=== PATIENT | female | born 1980 | race Caucasian/White ===

== ENCOUNTER 2024-08-15 09:12 | Emergency (ER) | payer OTHER ==
[~2024-08-15] VITALS: Ht 160 cm; Wt 80.0 kg
[2024-08-15 09:32] VITALS: BP 121/82; PULSE 81; RESP 16; O2SAT 99
--- NOTE | 2024-08-15 10:22 | RADIOLOGY REPORT ---
DI CHEST,SINGLE VIEW, HISTORY: cough COMPARISON: None None TECHNICAL DATA: 1 view of the chest was obtained. FINDINGS: Lines and tubes: None Cardiomediastinal silhouette: normal Pulmonary vasculature: normal Lung expansion: normal Lung airspace: normal Lung interstitium: normal Pleura: normal Pneumothorax: no Bones: Unremarkable Other: no IMPRESSION: No acute intrathoracic abnormality.
--- NOTE | 2024-08-15 11:55 | Physician Documentation ---
History of Present Illness ~ Chief Complaint: Cold, cough & congestion Stated Complaint: SICK X1 WEEK Time Seen by MD: 09:35 HPI 43-year-old female reports a chief complaint of cold cough and congestion. Patient states he has been experiencing symptoms for over a week and has not improved. Currently not a in antibiotics. Taking [id number] medications which isn't improving symptoms. Denies fevers or chills. No other complaints at this time Medication Reconciliation Allergies: Coded Allergies: No Known Allergies (Unverified , 08/15/24) Physical Exam Vital Signs: Temperature: 99.1, Source: Oral, Heart Rate: 81, Respiratory Rate: 16, BP: 121/82, Pulse Oximetry: 99, Weight: 80.000 Oxygen Flow Rate: 0 Physical Exam General: Well developed, well nourished, no distress. HEENT: Atraumatic, normal conjunctiva, moist mucous membranes. Neck: Full range of motion, supple. Respiratory: Lungs clear, no respiratory distress. Chest: No accessory muscle use, nontender. Cardiovascular: Regular rate and rhythm. Gastrointestinal: Soft, nontender, nondistended. Bowel sounds present. Extremities: Normal range of motion, nontender, normal capillary refill, no deformity. Back: No midline tenderness, no CVA tenderness. Neurologic: Oriented x4. Distal gross motor and sensory intact all four extremities. Moves all 4 extremities spontaneously. Psychiatric: Normal mood and affect. Skin: Normal color, warm and dry. No edema, no ecchymosis Progress Results/Orders Results/Orders Orders - JOSELINE GIBBS Chest,Single View (08/15/24 10:02) Covid19 Binax Poc Result Entry (08/15/24 10:09) Completed Orders - JOSELINE GIBBS Chest,Single View (08/15/24 10:02) Vital Signs 08/15/24 09:32 Temp 99.1 Pulse 81 Resp 16 B/P (MAP) 121/82 Pulse Ox 99 O2 Flow Rate 0 Laboratory Tests Test 08/15/24 10:06 SARS-CoV-2 Antigen (Rapid) Negative Medical Decision Making Additional info obtained from: old records Findings After detailed discussion and joint medical decision-making, diagnostic and imaging results were discussed with the patient. At this time patient we will be given symptomatic treatment but no antibiotics. Patient was offered a breathing treatment with a declined. Patient is advised to follow up with the primary care. ER precautions were given. Patient is stable upon discharge. All patient questions answered to satisfaction Differential Dx:Considerations: Include: Allergic rhinitis, Influenza, Otitis media, Peritonsillar abscess, Pharyngitis-Streptoccal, Pharyngitis-Viral, Pneumonia, Sinusitis Departure Disposition: HOME / SELF CARE / HOMELESS Impression: Primary Impression: Acute bronchitis Additional Impressions: Acute respiratory infection Cough Condition: Stable Discharge Instructions: Cough, Adult, Upper Respiratory Infection, Adult Referrals: NO PRIMARY CARE PROVIDER (PCP) Prescriptions D-Methorphan Hb/P-Epd HCl/Bpm (Bromfed Dm Cough Syrup) 2 Mg-30 Mg-10 Mg/5 Ml Syrup 10-May ML PO Q4HPRN PRN for cough for 2 Days, #120 ML 0 Refills Prov: JOSELINE GIBBS 08/15/24 Azithromycin (Zithromax) 250 Mg Tablet 1 TAB PO UD for 5 Days, #6 TAB 0 Refills 2 the first day followed by 1 for days 2-5 Prov: JOSELINE GIBBS 08/15/24 Prednisone* (Prednisone*) 20 Mg Tablet 1 TAB PO Q12H for 5 Days, #10 TAB Prov: JOSELINE GIBBS 08/15/24 Education Educated: Patient Educated regarding: diagnosis, treatment Signature Scribe Signature: none used Attestation: Scribed for Joseline Gibbs by Joseline THIBODEAUX . 08/15/24 11:56 JOSELINE GIBBS August 15, 2024 11:54
[2024-08-15] MEDS ORDERED: BROM118S60 PO (11:56)
[2024-08-15] MEDS ORDERED: AZIT250T PO (11:56)
[2024-08-15] MEDS ORDERED: PRED20TA PO (11:56)
[2024-08-15 12:15] VITALS: TEMP 99.1
== END 2024-08-15 12:16 | disposition home or self-care (01) ==
LOC: ER 09:12
DX: J20.9 Acute bronchitis, unspecified (principal); J22 Unspecified acute lower respiratory infection; Z20.822 Contact with and (suspected) exposure to COVID-19
CPT/HCPCS: 36415; 71045; 87811; 99284